=== PATIENT | female | born 1995 | race Caucasian/White ===

== ENCOUNTER 2018-03-22 12:18 | Inpatient (IN) ==
[2018-03-22] MEDS ORDERED: Naloxone 0.4 MG/ML INJ IVP PRN (13:17)
[2018-03-22] MEDS ORDERED: *HR* Nalbuphine 10 MG/ML AMPUL IVP PRN (13:17)
[2018-03-22] MEDS ORDERED: Famotidine 20 MG/2 ML VIAL IVP PRN (13:17)
[2018-03-22] MEDS ORDERED: Ondansetron 4 MG/2 ML VIAL IVP PRN (13:17)
--- NOTE | 2018-03-22 13:20 | Anesthesia Evaluation PreOp ---
Date of Encounter: 03/22/18 Time of Encounter: 13:11 - Past History Planned Operation: vaginal del, G1 induction Cardiac History: Denies any Significant Hx Pulmonary History: Denies Any Significant HX OIL DISTRIBUTOR TENDER History: Denies Any Significant HX Other Medical History: Denies Any Significant HX Anesthesia History: No Prior Anesthetic Complications, Past Anesthesia (no family hx,) Alcohol Use: none Drug use: none Anesthesia Exam - HEENT Pupil (Motor): Pupils equal Mallampati: II Teeth: Normal Oral Opening: Greater than 3 - OIL DISTRIBUTOR TENDER LOC: Oriented OIL DISTRIBUTOR TENDER Motor: Normal RUE, Normal LUE, Normal RLE, Normal LLE, Normal Face OIL DISTRIBUTOR TENDER Sensory: Normal: RUE, LUE, RLE, LLE, Face - Cardiac Rhythm: Regular Murmur: None - Pulmonary Breath Sounds: bilateral Clear Respiratory Effort: Symmetrical Anesthesia Assess/Plan ASA Score: 2 Modified [place] Scale for Level of Consciousness: Cooperative, oriented, and tranquil Anesthetic Plan: General, Regional (does not desire regional at this time.) Monitoring Plan: Standard Monitors Recovery Plan: PACU
[2018-03-22] MEDS ORDERED: EPHEDrine 50 MG/ML VIAL IVP PRN (13:21)
[2018-03-22] MEDS ORDERED: Epidural Premix (fent/bupiv) 110 ML EP SCH (13:30)
[2018-03-22] MEDS ORDERED: Ringers Solution, Lactated 1,000 ML IVC SCH (13:30)
[2018-03-22 14:07] LABS: Hematocrit 29.6 % (35.3-44.9); Hemoglobin 10.2 g/dL (11.5-15.4); Mean Corpuscular HGB Conc 34.5 g/dL (31.6-35.5); Mean Corpuscular Hemoglobin 33.3 pg (28.0-33.3); Mean Corpuscular Volume 96.7 fL (83.0-100.0); Mean Platelet Volume 11.5 fL (9.4-12.4); Platelet Count 134 K/mcL (140-400); Red Blood Count 3.06 M/mcL (3.82-4.97); Red Cell Distribution Width 14.6 % (11.5-14.5)
[2018-03-22 14:15] LABS: Amphetamine Screen,Urine Negative ng/mL (Cutoff=1000); Barbiturate Screen,Urine Negative ng/mL (Cutoff=200); Benzodiazepines Screen,Urine Negative ng/mL (Cutoff=200); Cannabinoid Screen,Urine Negative ng/mL (Cutoff = 50); Cocaine Screen,Urine Negative ng/mL (Cutoff= 300); Opiate Screen,Urine Negative ng/mL (Cutoff=300); Phencyclidine Screen,Urine Negative ng/mL (Cutoff=25)
--- NOTE | 2018-03-22 15:07 | OB Labor Progress Note ---
Date of Encounter: 03/22/18 Time of Encounter: 14:40 Labor Progress Note - Subjective Subjective: Pt denies complaints at this time. - Cervix Cervix: 4-5/80/-1 - Heart Tones Heart Tones: Category I - [place] Christian[place]: rare UC - Interventions Interventions: Campbell balloon placed above cervix using sterile technique. Balloon inflated with 60ml sterile water. Pt tolerated well. - Plan Plan: Intermittent monitoring. Allow pt to ambulate. Plan for AROM when campbell out. Pt may use breast stimulation to cause contractions.
[2018-03-22 15:08] LABS: Lymphocytes # 2.7 K/mcL (0.6-4.6); Neutrophils # 11.2 K/mcL (1.6-8.9); Platelet Estimate Normal (Normal)
--- NOTE | 2018-03-22 15:27 | OB/GYN History & Physical ---
Date of Encounter: 03/22/18 Time of Encounter: 15:25 Assessment and Plan (1) Postmaturity , 40-42 weeks gestation Current visit: Yes Status: Acute Admit for augmentation of labor. 60ml campbell balloon placed. Allow intermittent monitoring and pt ambulation. Anticipate . (2) Polyhydramnios affecting in third trimester Current visit: Yes Status: Acute History of Present Illness Chief complaint: contractions HPI: Ms. Loo is a 23 year old female presenting at 40+3 with contractions that have increased in intensity and frequency over the last 24 hours. Reports good movement. complicated by polyhydramnios, US yesterday CHARANJIT 27, EFW 8#6oz. Pt O Positive, Serologies Negative, Rub[place] immune, GBS negative. Past Med Surg Social Fam HX - Past Medical History Medical history: no medical history Psychiatric history: depression - Past Surgical History Surgical History: no surgical history - Social History Smoking Status: Former smoker Smokeless Tobacco Status: No Alcohol use: none Drug use: none - Family History Father Living Status: Still Living Hx Family Cardiac Disorders: Yes (HTN) Hx Family Respiratory Disorders: No Hx Family Cancer: No Hx Family GI Disorders: No Hx Family Genitourinary Disorders: No Hx Family Endocrine Disorder: Yes (DM.) Hx Family Musculoskeletal Disorders: No Hx Family Neuromuscular Disorders: No Hx Family Neurologic Disorders: No Hx Family HEENT Disorders: No Hx Family Autoimmune Disorders: No Hx Family Reproductive Disorders: No Hx Family Psychosocial Disorders: No Hx Family Medical Disorders: No Obstetrical History - Pregnancies : 1 Para: 0 Term: 0 : 0 Ab's: 0 Livin Review of System OB All systems PM: reviewed and no additional remarkable complaints except as stated Exam - Constitutional Constitutional: well developed, well nourished, no acute distress - Neck Neck exam: full ROM - Lungs Respiratory exam: CTAB - Cardiovascular Cardiovascular exam: RRR - Breasts Breast: bilateral: normal - Abdomen Abdomen: Present: bowel sounds normal, gravid, non tender - Extremities Extremities exam: full ROM, normal capillary refill, normal inspection - Vulva Vulva: bilateral: normal - Vagina Vagina: Present: normal moisture - Cervix Dilation: 4 Effacement: 80 Station: -1 - Adnexa Adnexa: bilateral: normal - Anus/Rectum Anus/Rectum: Present: normal perianal skin Results Result Diagrams: 03/22/18 13:30 Abnormal lab results WBC 14.7 K/mcL (4.3-11.1) H 03/22/18 13:30 RBC 3.06 M/mcL (3.82-4.97) L 03/22/18 13:30 Hgb 10.2 g/dL (11.5-15.4) L 03/22/18 13:30 Hct 29.6 % (35.3-44.9) L 03/22/18 13:30 RDW 14.6 % (11.5-14.5) H 03/22/18 13:30 Plt Count 134 K/mcL (140-400) L 03/22/18 13:30 Metamyelocytes % 2.0 % (0) H 03/22/18 13:30 Myelocytes % 4.0 % (0) H 03/22/18 13:30 Neutrophils # 11.2 K/mcL (1.6-8.9) H 03/22/18 13:30 All other labs normal. - VTE Reasons for not Prescribing Prophylaxis: Treatment not Indicated - Low risk for VTE
--- NOTE | 2018-03-22 16:30 | OB Labor Progress Note ---
Date of Encounter: 03/22/18 Time of Encounter: 16:27 Labor Progress Note - Subjective Subjective: Pt reports contractions have lessened since the campbell came out. - Cervix Cervix: 6/80/-1 - Heart Tones Heart Tones: Category I - [place]: irregular - Interventions Interventions: AROM for moderate amount clear fluid - Plan Plan: Continue to allow ambulation and intermittent monitoring. Anticipate .
--- NOTE | 2018-03-22 19:10 | OB Labor Progress Note ---
Date of Encounter: 03/22/18 Time of Encounter: 19:09 Labor Progress Note - Subjective Subjective: Pt reports pain improved with hydrotherapy in shower - Heart Tones Heart Tones: 134 BPM, no decelerations audible on doppler before, during, or following a contraction. - [place]: every 3 minutes per pt report - Interventions Interventions: continue hydrotherapy - Plan Plan: Anticipate .
[2018-03-22] MEDS ORDERED: Oxytocin 20 units/ LR 1000 mL 20 UNIT/1,000 ML BAG IVC ONE (20:51)
--- NOTE | 2018-03-23 02:57 | OB/GYN Procedure Note ---
Delivery - Delivery Date: 03/23/18 Provider: Virginia Palafox Intrapartum events: polyhydramnios Delivery induction: AROM, oxytocin, misoprostol Delivery augmentation: rupture of membranes Delivery monitor: external FHT Anesthesia: none Quantitated Blood Loss: 400 - Infant (s) A Delivery Date: 03/23/18 Infant Delivery Time: 01:39 Presentation: vertex Position: OA Route of delivery: Gender: Male Viability: Viable Pounds: 8 Ounces: 13 Weight Gram: 4 kg at 1 minute: 8 at 5 mins: 8 Shoulder Dystocia: encountered Shoulder Dystocia Maneuvers: Marnie maneuver Specimens collected: cord blood Placenta: spontaneous Cord: 3 umbilical vessels - Repair Episiotomy: none Laceration Description: Periurethral - Complications Delivery complications: none Delivery comments: Pt progressed normally to complete and pushed effectively to for viable male "José Miguel Calderón" weighing 8lbs 13 oz with apgars 8 at one minute and 8 at five minutes. Following delivery of the head pt was not feeling a contraction and was not feeling an urge to push. Due to concern for possible shoulder dystocia we placed her in Mcrobert's maneuver at this time. She then attempted to push without resolution. I then placed my hand on the posterior aspect of the 's left shoulder (anterior) and rotated the to OA position. THe pt then felt a contraction and pushed effectively to delivery. After pulsations ceased the cord was clamped and cut and the placenta delivered spontaneous and intact. Brisk lochia was noted at this time. Fundus boggy. Methergine given. Fundus firms with fundal massage. A small graicela-urethral laceration was repaired with 4-0 Monocryl. EBL 400ml. Mother and baby stable in kangaroo care following . - Disposition Mom disposition: stable in LDR [place] disposition: stable in LDR
[2018-03-23] MEDS ORDERED: Ibuprofen 600 MG TABLET PO ONE (03:00)
[2018-03-23] MEDS ORDERED: Oxytocin 20 units/ LR 1000 mL 20 UNIT/1,000 ML BAG IVC ONE (04:17)
[2018-03-23] MEDS ORDERED: Oxytocin 20 units/ LR 1000 mL 20 UNIT/1,000 ML BAG IVC SCH (05:18)
[2018-03-23] MEDS ORDERED: Lanolin 7 G OINT...G. TP PRN (05:18)
[2018-03-23] MEDS ORDERED: Measles/Mumps/Rubella Vacc 0.5 ML VIAL SQ PRN (05:18)
[2018-03-23] MEDS ORDERED: Benzocaine/Menthol 56 GM AEROSOL SPRAY TP PRN (05:18)
[2018-03-23] MEDS ORDERED: Methylergonovine 0.2 MG/ML AMPUL IM ONE (05:18)
[2018-03-23] MEDS ORDERED: Famotidine 20 MG TABLET PO SCH (07:30)
[2018-03-23] MEDS: Prenatal Vit/FA 1 EACH TABLET PO SCH (09:00)
[2018-03-23] MEDS: Acetaminophen 325 MG TABLET PO PRN (19:55)
[2018-03-23] MEDS: Ibuprofen 600 MG TABLET PO PRN (22:12)
[2018-03-24] MEDS: Ibuprofen 600 MG TABLET PO PRN (05:52)
[2018-03-24] MEDS: Acetaminophen 325 MG TABLET PO PRN (05:53)
[2018-03-24] MEDS: Prenatal Vit/FA 1 EACH TABLET PO SCH (08:28)
--- NOTE | 2018-03-24 10:35 | Discharge Summary ---
Date of Encounter: 03/24/18 Time of Encounter: 10:31 - Discharge Diagnosis (1) Vaginal delivery Priority: Primary Status: Acute Comments: S/P Vaginal delivery day 1 Pain is well controlled. Lochia is light and without clots VSS Tolerating regular diet; voiding without difficulty and passing flatus Breast feeding Discharge home today. - Discharge Medications Prescriptions: Ibuprofen [Motrin] 600 mg PO Q6HR PRN #30 tablet PRN Reason: Cramping Breast Pump [BREAST PUMP] 1 each .ROUTE AD #1 each Docusate [Colace] 100 mg PO BID PRN #30 capsule PRN Reason: constipation Ferrous Sulfate 325 mg PO DAILY #90 tablet Home Medications: Acetaminophen [Tylenol] 650 mg PO Q6HR PRN tablet 03/24/18 [Rx] Benzocaine/Menthol [place] [Dermoplast [place]] 1 appl TP QID PRN aerosol 03/24/18 [Rx] Breast Pump [BREAST PUMP] 1 each .ROUTE AD #1 each 03/24/18 [Rx] Docusate [Colace] 100 mg PO BID PRN #30 capsule 03/24/18 [Rx] Ferrous Sulfate 325 mg PO DAILY #90 tablet 03/24/18 [Rx] Ibuprofen [Motrin] 600 mg PO Q6HR PRN #30 tablet 03/24/18 [Rx] Lanolin [Lansinoh] 1 appl TP QID PRN oint...g. 03/24/18 [Rx] Vit/FA 1 each PO DAILY tablet 03/24/18 [Rx] Allergies/Adverse Reactions: 3 Allergy/AdvReac Type Severity Reaction Status Date / Time prednisolone Allergy Mild Vomiting Verified 03/23/18 02:57 Data Procedures and tests throughout hospitalization: Laboratory Tests 03/22/18 03/22/18 13:30 13:30 WBC 14.7 H RBC 3.06 L Hgb 10.2 L Hct 29.6 L MCV 96.7 MCH 33.3 MCHC 34.5 RDW 14.6 H Plt Count 134 L MPV 11.5 Seg Neutrophils % 74.0 Band Neutrophils % 2.0 Lymphocytes % 18.0 Metamyelocytes % 2.0 H Myelocytes % 4.0 H Neutrophils # 11.2 H Lymphocytes # 2.7 Platelet Estimate Normal Urine Opiates Screen Negative Ur Barbiturates Screen Negative Ur Phencyclidine Scrn Negative Ur Amphetamines Screen Negative U Benzodiazepines Scrn Negative Urine Cocaine Screen Negative U Marijuana (THC) Screen Negative Ur Drug Screen Interp See Below Date of admission: 03/22/18 12:18 Primary care physician: PCP NONE Consults: 03/23/18 05:18 Consult to Lumber Driver [CONS] Routine Comment: Vaginal delivery, consult needed Discharging clinician: Shahrzad Daigle Anticipated date of discharge: 03/24/18 - Patient Status Disposition: Home, Self-Care Condition: Good Functional capacity at discharge: independent ambulation Overall status at discharge: patient is progressing back to baseline - Discharge Instructions Follow Up With: NONE,PCP [Primary Care Provider] - Virginia Palafox CNM [Non-Partnered Physician] - - Diet and Activity Activity: increase activity as tolerated Diet: regular diet Hospital Course Reason for admission: induction of labor, IUP at term Delivery: Episiotomy: none Laceration: other Other procedures: none complications: none Discharge diagnosis: IUP at term delivered [place] baby: male Time Attestation: Total time spent providing and/or coordinating discharge services: Time Spent: Less than 30 minutes Exam - Constitutional Vitals: Temp Pulse Resp BP Pulse Ox 98.2 F 73 16 94/63 99 03/24/18 07:45 03/24/18 07:45 03/24/18 07:45 03/24/18 07:45 03/23/18 20:30 General appearance IM: cooperative, A&O X 3, pleasant - Respiratory Respiratory exam: Present: CTAB - Cardiovascular Cardiovascular exam IM: Present: RRR, +S1, +S2 - GI/Abdominal GI/Abdominal exam IM: normal bowel sounds, soft - Rectal Rectal exam: deferred - Uterine Tone: Firm Uterus Position: At Umbilicus, Midline
[2018-03-24 12:44] VITALS: BP 113/71
== END 2018-03-24 13:23 | disposition home or self-care (01) | DRG 775 ==
LOC: 1NENULAB → OBSVTOIN 12:18 → 1NENUOBS 03-23 04:48
PROVIDERS: ADMIT Obstetrics & Gynecology; ATTEND Obstetrics & Gynecology

== ENCOUNTER → 2020-03-07 23:30 | Observation (INO) | END | disposition home or self-care (01) | LOC: 1NENULAB | PROVIDERS: ADMIT Student in an Organized Health Care Education/Training Program; ATTEND Student in an Organized Health Care Education/Training Program ==

== ENCOUNTER 2020-03-10 13:28 | Inpatient (IN) ==
[2020-03-10] MEDS ORDERED: Ringers Solution, Lactated 1,000 ML IVC SCH (13:30)
[2020-03-10] MEDS ORDERED: Metoclopramide 10 MG/2 ML VIAL IVP PRN (13:30)
[2020-03-10] MEDS ORDERED: Famotidine 20 MG/2 ML VIAL IVP PRN (13:30)
[2020-03-10] MEDS ORDERED: Oxytocin 20 units/ LR 1000 mL 20 UNIT/1,000 ML BAG IVC SCH (13:30)
[2020-03-10] MEDS ORDERED: Naloxone 0.4 MG/ML INJ IVP PRN (13:30)
[2020-03-10 14:04] LABS: Eosinophils # 0.1 K/mcL (0.0-0.6); Hemoglobin 9.4 g/dL (11.5-15.4); Mean Corpuscular HGB Conc 33.6 g/dL (31.6-35.5); Mean Corpuscular Hemoglobin 33.9 pg (28.0-33.3); Mean Corpuscular Volume 101.1 fL (83.0-100.0); Mean Platelet Volume 10.9 fL (9.4-12.4); Monocytes # 0.8 K/mcL (0.0-1.3); Platelet Count 160 K/mcL (140-400); Red Blood Count 2.77 M/mcL (3.82-4.97); Red Cell Distribution Width 14.5 % (11.5-14.5); White Blood Count 13.1 K/mcL (4.3-11.1)
[2020-03-10] MEDS ORDERED: EPHEDrine 50 MG/ML VIAL IVP PRN (14:12)
[2020-03-10] MEDS ORDERED: Epidural Premix (fent/bupiv) 110 ML EP SCH (14:15)
[2020-03-10 14:43] LABS: Lymphocytes # 1.4 K/mcL (0.6-4.6); Neutrophils # 10.5 K/mcL (1.6-8.9); Platelet Estimate Normal (Normal)
[2020-03-10 14:44] LABS: Anisocytosis 1+ (Not Present)
[2020-03-10] MEDS ORDERED: Methylergonovine 0.2 MG/ML AMPUL IM ONE (15:37)
[2020-03-10 15:56] LABS: Amphetamine Screen,Urine Negative ng/mL (Cutoff=1000); Barbiturate Screen,Urine Negative ng/mL (Cutoff=200); Benzodiazepines Screen,Urine Negative ng/mL (Cutoff=200); Cannabinoid Screen,Urine Negative ng/mL (Cutoff = 50); Cocaine Screen,Urine Negative ng/mL (Cutoff= 300); Opiate Screen,Urine Negative ng/mL (Cutoff=300); Phencyclidine Screen,Urine Negative ng/mL (Cutoff=25)
[2020-03-10] MEDS ORDERED: Ondansetron 4 MG/2 ML VIAL ONE (22:53)
[2020-03-11] MEDS ORDERED: Benzocaine/Menthol 56 GM AEROSOL SPRAY TP PRN (00:51)
[2020-03-11] MEDS ORDERED: Measles/Mumps/Rubella Vacc 0.5 ML VIAL SQ PRN (00:51)
[2020-03-11] MEDS ORDERED: Oxytocin 20 units/ LR 1000 mL 20 UNIT/1,000 ML BAG IVC SCH (00:51)
[2020-03-11] MEDS ORDERED: Lanolin 7 G OINT...G. TP PRN (00:51)
[2020-03-11] MEDS ORDERED: Rho Immune Globulin 1,500 UNIT SYRINGE IM PRN (00:51)
[2020-03-11] MEDS ORDERED: Oxytocin 20 units/ LR 1000 mL 20 UNIT/1,000 ML BAG IVC ONE (00:51)
[2020-03-11] MEDS: Acetaminophen 325 MG TABLET PO PRN ×3 (02:10→20:08)
[2020-03-11 04:48] LABS: Basophils # 0.1 K/mcL (0.0-0.2); Basophils % 0.3 %; Eosinophils % 0.2 %; Hematocrit 29.7 % (35.3-44.9); Hemoglobin 9.9 g/dL (11.5-15.4); Immature Granulocytes % 2.1 % (0-4); Lymphocytes # 1.6 K/mcL (0.6-4.6); Lymphocytes % 9.3 %; Mean Corpuscular HGB Conc 33.3 g/dL (31.6-35.5); Mean Corpuscular Hemoglobin 32.9 pg (28.0-33.3); Mean Corpuscular Volume 98.7 fL (83.0-100.0); Mean Platelet Volume 10.5 fL (9.4-12.4); Monocytes # 1.1 K/mcL (0.0-1.3); Monocytes % 6.2 %; Neutrophils # 14.2 K/mcL (1.6-8.9); Platelet Count 160 K/mcL (140-400); Red Blood Count 3.01 M/mcL (3.82-4.97); Red Cell Distribution Width 13.9 % (11.5-14.5); Segmented Neutrophils % 81.9 %; White Blood Count 17.4 K/mcL (4.3-11.1)
[2020-03-11] MEDS: Ibuprofen 600 MG TABLET PO PRN ×3 (07:47→23:06)
[2020-03-11] MEDS ORDERED: Prenatal Vit/FA 1 EACH TABLET PO SCH (09:00)
[2020-03-11 20:57] VITALS: BP 107/64
== END 2020-03-12 00:25 | disposition home or self-care (01) | DRG 807 ==
LOC: 1NENULAB 13:28 → 1NENUOBS 03-11 00:48
PROVIDERS: ADMIT Obstetrics & Gynecology; ATTEND Obstetrics & Gynecology